=== PATIENT | female | born 2000 | race Caucasian/White ===

== ENCOUNTER 2024-09-27 10:38 | Day surgery (SDC) | payer OTHER, SELFPAY ==
[2024-09-18 09:38] VITALS: BMI 29.5
[2024-09-27] VITALS (9 sets, daily range): BP systolic 102–138; BP diastolic 61–83; PULSE 75–116; RESP 14–18; TEMP 36.3–36.8; O2SAT 97–100; BMI 28.0
[2024-09-27] MEDS: LACTATED RINGERS 1,000 ML 42 ML IV ×2 (11:31→13:36)
[2024-09-27] MEDS: ACETAMINOPHEN 325 MG TABLET 975 MG PO (11:35)
--- NOTE | 2024-09-27 12:10 | PM.PREOP ---
Pre-operative Note COVID-19 COVID-19 status: Not tested Interval Note History & Physical reviewed/Exam performed by Physician: Yes Changes to H&P: No
[2024-09-27] MEDS: CEFAZOLIN 2 GM/100 ML PREMIX 100 ML IV (12:45)
--- NOTE | 2024-09-27 13:00 | SUR.OPER ---
Lithotomy on padded OR bed, head on pillow, arms secured on padded arm boards at <90 degrees abduction. Legs secured in padded yellow fins stirrups.
[2024-09-27] MEDS: BUPIVACAINE 0.25% W/ EPI 30 ML VIAL INJ (13:07)
--- NOTE | 2024-09-27 13:29 | P.OP_ITS ---
Operative Date/Time/Diagnoses Date of procedure: 09/27/24 Time of procedure: 11:45 Pre-op diagnosis: Anatomic stress urinary incontinence, female Post-op diagnosis: same Procedure & Clinicians Procedure: Procedures Operation Date: 09/27/24 12:15 Actual Procedure Side Surgeon afshan Mid uretheral sling with cystoscopy Neri Rivas MD Indications: Karina is a 23-year-old , LMP 07/24/2024, who presents for evaluation of stress incontinence which has developed since the of her child 2 years ago. She denies any urge incontinence, UTIs, or other gynecologic symptoms. She underwent pelvic floor physiotherapy training which initially improved her symptoms somewhat but those symptoms have continued to worsen despite pelvic floor exercises. She is currently going through separation/divorce and has no immediate plans for another but does wish to keep that option open in the future. We had an extended discussion regarding the nature of her incontinence and rationale for treatment options. Patient has done extensive pelvic floor physiotherapy training and continues to exercise for pelvic floor on a regular basis. Unfortunately the improvement noted initially has not been sustained and the patient is really having issues with her stress incontinence as her job requires significant lifting. As result she is constantly having to wear a pad and after our discussions wishes to proceed with mid urethral sling placement. She has minor anterior compartment prolapse which does not require correction at this point as she is asymptomatic and not yet finished with childbearing. She presents today for her scheduled surgery. Surgeon: Neri Rivas Anesthesia Type: General Operative Notes Findings: Marked UVJ hypermobility with Valsalva. Cystoscopy shows normal bladder mucosa with no evidence of ureteral more mucosal injury.. Closure Type: primary Specimen(s): none Estimated blood loss (mL): 25 Blood products transfused: none Procedure in detail: With the patient under satisfactory general anesthesia in the modified dorsal lithotomy position, the vagina, perineum, and lower abdomen prepped and draped in the usual manner for mid urethral sling placement and cystoscopy. A pre- surgical safety time-out was then taken in accordance with [facility] OR protocols. A weighted speculum was inserted in the vagina and the anterior vaginal wall inspected. A Saldivar catheter was inserted in the bladder and the mid urethra was identified by palpation of the Saldivar bulb. Once the mid urethra had been identified, 2 Allis clamps were placed and the area of incision infiltrated with 0.25% Marcaine with epinephrine. A 2 cm longitudinal incision of the vaginal mucosa overlying the mid urethra was then made and using Metzenbaum scissors the dissection was carried lateral on both sides so as to be able to safely introduce the retropubic tension-free vaginal tape. The TVT needle was placed 1st on the right side followed by placement of a left up through the suprapubic skin. The needle tips were brought out through the skin and remained in place while the Saldivar catheter was removed and cystoscopy performed with findings as noted above. The TVT needles were then brought up through the suprapubic incisions and removed with suture scissors. The mid urethral sling was then appropriately positioned under the mid urethra and the plastic sleeves removed from the TVT once it was in correct position. The redundant portion TVT material was then excised at the skin line of the suprapubic incisions. Correct positioning of the DVT was then confirmed and the vaginal incision closed with 3-0 chromic in a running locking stitch. Pressure was maintained on the retropubic tissues for 5 minutes so as to reduce the risk subsequent bleeding or bruising. The suprapubic incisions were then closed with skin glue and inappropriate dressing was applied. Patient was then awakened from anesthesia and transferred to the PACU for a period of observation and recovery after having tolerated procedure well. Complications: none Post-operative Condition: stable Disposition: PACU Plan for aftercare: Routine postoperative care with follow-up planned for 2 weeks postop Post-Operative Instructions Surgical Site: Blood spotting from the vagina is expected and not cause for alarm. All stitches will dissolve on their own. You may apply ice packs to the vaginal/pubic area as needed for comfort for the first two days. You can shower approximately 48 hours after your surgery but avoid scrubbing the surgical site. Do not submerge underwater for 6 weeks (no bathtub or swimming pool). Diet and Activity: You may return to your normal diet and light activity, as tolerated, after surgery. Avoid driving while on narcotic pain medications. Please avoid any heavy lifting more than 10 lbs or strenuous physical activities altogether for 4 weeks and then ease back into your regular activity. Avoid vaginal intercourse or penetration for 6 weeks. Medications: You received a prescription for a narcotic pain pill to use in addition to extra strength Tylenol (acetaminophen). Narcotics can cause constipation so use [id number] stool softeners as needed. Please avoid any Aspirin, Advil, Motrin, Aleve, ibuprofen, or any other blood th inners after the procedure for at least two days. Problems you should report: Fevers > 101. Any pain not controlled by pain medication provided. Uncontrolled bleeding from the incision. Inability to urinate. Any concerns or problems, please contact us at anytime. Follow-up: You should be scheduled for a post-operative appointment about 2 weeks after your surgery. Please call to confirm time if necessary.
[2024-09-27] MEDS: METOCLOPRAMIDE 10 MG/2 ML INJ IV (13:40)
[2024-09-27] MEDS: MEPERIDINE 50 MG/ML INJ 12.5 MG IV (13:40)
[2024-09-27] MEDS: OXYCODONE IR 5 MG TABLET PO (13:41)
[2024-09-27] MEDS: HYDROMORPHONE 1 MG INJ IV (13:49)
== END 2024-09-27 14:35 | disposition home or self-care (01) ==
PROVIDERS: Referring Provider Obstetrics & Gynecology; Visit Provider Obstetrics & Gynecology
PROC: 0TSD0ZZ Reposition Urethra, Open Approach (ICD-10-PCS; CPT 57288; principal; 2024-09-27 12:15)
DX: N39.3 Stress incontinence (female) (male) (principal)
CPT/HCPCS: 57288; 81025; C1771; J0330; J0690; J1100; J1171; J1885; J2175; J2250; J2405; J2704; J2765; J3010